=== PATIENT | male | born 1930 | race Caucasian/White ===

== ENCOUNTER 2017-03-17 12:48 | Day surgery (SDC) | payer MEDICARE ==
[2017-03-17] MEDS ORDERED: Acetaminophen 500 MG TAB PO SCH (13:15)
[2017-03-17] MEDS ORDERED: Furosemide 40 MG TAB PO SCH (13:15)
[2017-03-17] MEDS ORDERED: diphenhydrAMINE 25 MG CAP PO SCH (13:15)
[2017-03-17] MEDS ORDERED: Sodium Chloride 0.9% 20 ML ONE (14:49)
[2017-03-17 17:01] VITALS: BP 146/69; TEMP 97.8
[2017-03-17 19:38] LABS: #Basophils 0.1 thou/uL (0.0-0.2); #Eosinphils 0.1 thou/uL (0.0-0.7); #Lymphocytes 1.5 thou/uL (1.20-3.40); #Monocytes 0.4 thou/uL (0.11-0.59); #Neutrophils 1.6 thou/uL (1.40-6.50); %Basophils 2.2 % (0.0-1.0); %Eosinophils 2.2 % (0.0-10.0); %Lymphocytes 42.5 % (21.0-51.0); %Monocytes 10.2 % (0.0-10.0); Anisocytosis SLIGHT = 6-15 cells (100X) (0-5/hpf); Hematocrit 30.1 % (42.0-52.0); Mean Platelet Volume 11.4 fL (7.4-10.4); Ovalocytes SLIGHT = 2-5 cells (100X) (0-1/hpf); Red Blood Cell (RBC) Count 2.78 mill/uL (4.70-6.10); White Blood Cell (WBC) Count 3.6 thou/uL (4.8-10.8)
== END 2017-03-17 19:17 | disposition home or self-care (01) ==
LOC: ONC/OP 12:48
PROVIDERS: ATTEND Internal Medicine Medical Oncology
PROC: 30233N1 Transfusion of Nonautologous Red Blood Cells into Peripheral Vein, Percutaneous Approach (ICD-10-PCS; principal; 2017-03-17)
DX: D64.9 Anemia, unspecified (principal); D69.59 Other secondary thrombocytopenia; I25.10 Atherosclerotic heart disease of native coronary artery without angina pectoris; M10.9 Gout, unspecified; I10 Essential (primary) hypertension; M19.90 Unspecified osteoarthritis, unspecified site; Z87.891 Personal history of nicotine dependence; Z79.899 Other long term (current) drug therapy; Z95.5 Presence of coronary angioplasty implant and graft
CPT/HCPCS: 36415; 36430; 80053; 82248; 83615; 84100; 84550; 85025; 86850; 86900; 86901; A4216; P9016